=== PATIENT | female | born 1960 | race Caucasian/White ===

== ENCOUNTER → 2018-05-12 | Outpatient (CLI) | payer BC ==
--- NOTE | 2018-05-14 09:06 | ECHOF ---
Referral Reason:I10 Essential (primary) hypertension MEASUREMENTS -------- HEIGHT: 167.6 cm WEIGHT: 92.1 kg BP: RVIDd: 2.2 cm (< 3.3) IVSd: 0.9 cm (0.6 - 1.1) LVIDd: 4.0 cm (3.9 - 5.3) LVPWd: 1.0 cm (0.6 - 1.1) IVSs: 1.1 cm LVIDs: 2.9 cm LVPWs: 1.3 cm LAESV Index (A-L): 26.22 ml/m Ao Diam: 2.9 cm (2.0 - 3.7) AV Cusp: 1.9 cm (1.5 - 2.6) LA Diam: 3.0 cm (2.7 - 3.8) MV EXCURSION: 16.399 mm (> 18.000) MV EF SLOPE: 109 mm/s (70 - 150) EPSS: 0.5 cm MV E John: 0.81 m/s MV DecT: 358 ms MV A John: 0.00 m/s MV E/A Ratio: 186.42 RAP: 5.00 mmHg RVSP: 22.32 mmHg FINDINGS -------- Sinus rhythm. This was a technically adequate study. The left ventricular size is normal. Left ventricular wall thickness is normal. Overall left vent ricular systolic function is normal with, an EF between 55 - 60 %. The right ventricle is normal in size and function. Normal LA size by volume 22+/-6 ml/m2. The right atrium is normal in size. The aortic valve is trileaflet, and appears structurally normal. No aortic stenosis or regurgitation. The mitral valve leaflets are mildly thickened. Mild mitral regurgitation is present. Trace tricuspid regurgitation present. Right ventricular systolic pressure is normal at < 35 mmHg. There is no evidence of pulmonary hypertension. The pulmonic valve is normal. The aortic root size is normal. Normal inferior vena cava with normal inspiratory collapse consistent with estimated right atrial pre ssure of 5 mmHg. There is no pericardial effusion. CONCLUSIONS -------- 1. Sinus rhythm. 2. This was a technically adequate study. 3. The left ventricular size is normal. 4. Left ventricular wall thickness is normal. 5. Overall left ventricular systolic function is normal with, an EF between 55 - 60 %. 6. Normal LA size by volume 22+/-6 ml/m2. 7. The aortic valve is trileaflet, and appears structurally normal. No aortic stenosis or regurgitati on. 8. The mitral valve leaflets are mildly thickened. 9. Mild mitral regurgitation is present. 10. Trace tricuspid regurgitation present. 11. Right ventricular systolic pressure is normal at < 35 mmHg. 12. There is no evidence of pulmonary hypertension. 13. The aortic root size is normal. 14. There is no pericardial effusion. JEWELRY [employer]KING INSTRUCTOR: Jose Trivedi RDCS
== END | disposition home or self-care (01) ==
LOC: RADECHMAIN 14:41
PROVIDERS: ATTEND Family Medicine
DX: I34.0 Nonrheumatic mitral (valve) insufficiency (principal); I10 Essential (primary) hypertension
CPT/HCPCS: 93306

== ENCOUNTER → 2019-03-16 | Outpatient (CLI) | payer BC ==
[2019-03-16 11:34] LABS: African American GFR (CKD) 94.2 (60.0-200.0); Albumin 4.2 g/dL (3.80-4.90); Albumin/Globulin Ratio 1.83 (1.60-3.17); Anion Gap 7.4 mmol/L (4.00-12.00); Calcium 9.3 mg/dL (8.7-10.3); Carbon Dioxide 26.6 mmol/L (21.6-31.8); Globulin 2.3 g/dL (1.6-3.3); LDL Cholesterol,Calculated 113.2 mg/dL (0.0-131.0); Potassium 4.2 mmol/L (3.5-5.5); Total Bilirubin 0.7 mg/dL (0.3-1.2); Total Protein 6.5 g/dL (6.2-8.2); VLDL Calculation 22.8 mg/dL (5.00-40.00)
== END | disposition home or self-care (01) ==
LOC: LABWHC1 07:13
PROVIDERS: ATTEND Family Medicine
DX: Z00.00 Encounter for general adult medical examination without abnormal findings (principal)
CPT/HCPCS: 36415; 80053; 80061

== ENCOUNTER → 2019-04-20 | Outpatient (CLI) | payer BC ==
--- NOTE | 2019-04-24 15:25 | MM ---
Reason for exam: screening (asymptomatic). Last mammogram was performed 2 years and 9 months ago. History: Patient is postmenopausal and is nulliparous. Family history of premenopausal breast cancer in maternal aunt at age 45. Took hormonal contraceptives for 8 years beginning at age 25. Taking estrogen for 6 months. MG 3D Screening Mammo W/Cad Bilateral CC and MLO view(s) were taken. Prior study comparison: July 26, 2016, bilateral MG 3d diag mammo w/cad [facility]. November 09, 2013, CAD bilateral diagnostic mammogram. The breast tissue is heterogeneously dense. This may lower the sensitivity of mammography. No significant new finding when compared with prior studies. ASSESSMENT: Negative, BI-RAD 1 RECOMMENDATION: Routine screening mammogram of both breasts in 1 year.
== END | disposition home or self-care (01) ==
LOC: RADMAMWWP 07:40
PROVIDERS: ATTEND Family Medicine
DX: Z12.31 Encounter for screening mammogram for malignant neoplasm of breast (principal)
CPT/HCPCS: 77063; 77067

== ENCOUNTER → 2021-09-04 | Outpatient (CLI) | payer BC ==
[2021-09-04 12:10] LABS: ALT 22 U/L (8-44); AST 18 U/L (13-35); African American GFR (CKD) 108.4 (60.0-200.0); Albumin 4.3 g/dL (3.8-4.9); Albumin/Globulin Ratio 2.15 (1.60-3.17); Alkaline Phosphatase 48 U/L (41-126); BUN/Creat Ratio 21.29 Ratio (12.00-20.00); Blood Urea Nitrogen 14.9 mg/dL (9.0-27.0); Calcium 9.3 mg/dL (8.7-10.3); Carbon Dioxide 22.9 mmol/L (20.0-27.5); Chloride 103 mmol/L (96-109); Chol/HDL Ratio 2.48 Ratio; Glucose 87 mg/dL (70-110); LDL Cholesterol,Calculated 105.8 mg/dL (0.0-131.0); Non-African American GFR(CKD) 93.5 (60.0-200.0); Potassium 4.2 mmol/L (3.5-5.5); Sodium 138 mmol/L (135-145); Total Protein 6.3 g/dL (6.2-8.2)
== END | disposition home or self-care (01) ==
LOC: LABWHC1 07:07
PROVIDERS: ATTEND Family Medicine
DX: Z00.00 Encounter for general adult medical examination without abnormal findings (principal); Z12.12 Encounter for screening for malignant neoplasm of rectum
CPT/HCPCS: 36415; 80053; 80061

== ENCOUNTER → 2022-03-08 | Outpatient (CLI) | payer BC ==
--- NOTE | 2022-03-09 20:06 | MM ---
Reason for Exam: Screening (asymptomatic). Last mammogram was performed 2 year(s) and 11 month(s) ago. Patient History: Menarche at age 12. Patient has no children. Postmenopausal. Currently using Estrogen, for 6 months. Hormonal Contraceptives for 8 years from age 25 until age 50. Maternal aunt had breast cancer, age 45. Risk Values: Cyndie 5 year model risk: 1.6%. NCI Lifetime model risk: 7.9%. Prior Study Comparison: 11/09/2013 Bilateral Diagnostic Mammogram, [facility]. 07/26/2016 Bilateral Diagnostic Mammogram, [facility]. 04/20/2019 Bilateral Screening Mammogram, [facility]. Tissue Density: There are scattered fibroglandular densities. Findings: Analyzed By CAD. On the right, there is an area of focal asymmetry upper outer quadrant middle depth that appears more defined and incompletely disperses on 3-D images. Additional views are recommended. Additional oval nodularity 3-4 o'clock right breast middle to posterior depth medial. Again, further evaluation is recommended. Otherwise, no significant change. Overall Assessment: Incomplete: need additional imaging evaluation, BI-RAD 0 Management: Special View Mammogram of the right breast. 1. Additional views right breast to include spot 3-D CC, spot 3-D MLO, and 3-D lateral views (2 sites). 2. Targeted right breast ultrasound if any persisting abnormality. Electronically signed and approved by: Benjamin Bliss M.D. Radiologist
== END | disposition home or self-care (01) ==
LOC: RADMAMWWP 07:49
PROVIDERS: ATTEND Family Medicine
DX: Z12.31 Encounter for screening mammogram for malignant neoplasm of breast (principal); Z78.0 Asymptomatic menopausal state; Z80.3 Family history of malignant neoplasm of breast
CPT/HCPCS: 77063; 77067

== ENCOUNTER → 2022-03-18 | Outpatient (CLI) | payer BC ==
--- NOTE | 2022-03-18 15:45 | USB ---
Reason for Exam: Additional evaluation requested from abnormal screening. Last screening mammogram was performed less than 1 month ago. Patient History: Menarche at age 12. Patient has no children. Postmenopausal. Currently using Estrogen, for 6 months. Hormonal Contraceptives for 8 years from age 25 until age 50. Maternal aunt had breast cancer, age 45. Risk Values: Cyndie 5 year model risk: 1.6%. NCI Lifetime model risk: 7.9%. Prior Study Comparison: 06/26/2001 Bilateral Screening Mammogram, [facility]. 06/27/2003 Bilateral Screening Mammogram, [facility]. 10/15/2005 Bilateral Screening Mammogram, [facility]. 10/22/2005 Right Diagnostic Mammogram, [facility]. 11/17/2007 Bilateral Screening Mammogram, [facility]. 11/29/2007 Right Diagnostic Mammogram, [facility]. 10/30/2009 Bilateral Diagnostic Ultrasound, [facility]. 10/30/2009 Bilateral Diagnostic Mammogram, [facility]. 07/30/2010 Bilateral Diagnostic Ultrasound, [facility]. 11/06/2010 Bilateral Diagnostic Mammogram, [facility]. 07/24/2012 Bilateral Diagnostic Mammogram, [facility]. 07/24/2012 Right Diagnostic Ultrasound, [facility]. 11/09/2013 Bilateral Diagnostic Mammogram, [facility]. 11/09/2013 Right Diagnostic Ultrasound, [facility]. 07/26/2016 Bilateral Diagnostic Mammogram, [facility]. 07/26/2016 Right Diagnostic Ultrasound, [facility]. 04/20/2019 Bilateral Screening Mammogram, [facility]. 03/08/2022 Bilateral MG 3D screening mammo w/cad, [facility]. Tissue Density: Right: There are scattered fibroglandular densities. Findings: Analyzed By CAD. Mammogram Under compression there is a persistent nodularity within the 3:00 position posterior right breast.. This is nonspecific. Additional workup with ultrasound is recommended. Technique: Method: Targeted. Findings: No discrete solid or cystic areas evident to correspond to the mammographic finding. No suspicious ultrasound findings. Overall Assessment: Suspicious, BI-RAD 4 Assessment: MG 3D work up w/cad RT - Right: Suspicious, BI-RAD 4. US breast workup limited RT - Right: Negative, BI-RAD 1. Management: Stereotactic Core Biopsy of the right breast. A clinical breast exam by your physician is recommended on an annual basis and results should be correlated with mammographic findings. Results were given to the patient verbally at the time of exam. Electronically signed and approved by: Edgard Benson D.O. Radiologis
--- NOTE | 2022-03-18 15:45 | MM ---
Reason for Exam: Additional evaluation requested from abnormal screening. Last screening mammogram was performed less than 1 month ago. Patient History: Menarche at age 12. Patient has no children. Postmenopausal. Currently using Estrogen, for 6 months. Hormonal Contraceptives for 8 years from age 25 until age 50. Maternal aunt had breast cancer, age 45. Risk Values: Cyndie 5 year model risk: 1.6%. NCI Lifetime model risk: 7.9%. Prior Study Comparison: 06/26/2001 Bilateral Screening Mammogram, [facility]. 06/27/2003 Bilateral Screening Mammogram, [facility]. 10/15/2005 Bilateral Screening Mammogram, [facility]. 10/22/2005 Right Diagnostic Mammogram, [facility]. 11/17/2007 Bilateral Screening Mammogram, [facility]. 11/29/2007 Right Diagnostic Mammogram, [facility]. 10/30/2009 Bilateral Diagnostic Ultrasound, [facility]. 10/30/2009 Bilateral Diagnostic Mammogram, [facility]. 07/30/2010 Bilateral Diagnostic Ultrasound, [facility]. 11/06/2010 Bilateral Diagnostic Mammogram, [facility]. 07/24/2012 Bilateral Diagnostic Mammogram, [facility]. 07/24/2012 Right Diagnostic Ultrasound, [facility]. 11/09/2013 Bilateral Diagnostic Mammogram, [facility]. 11/09/2013 Right Diagnostic Ultrasound, [facility]. 07/26/2016 Bilateral Diagnostic Mammogram, [facility]. 07/26/2016 Right Diagnostic Ultrasound, [facility]. 04/20/2019 Bilateral Screening Mammogram, [facility]. 03/08/2022 Bilateral MG 3D screening mammo w/cad, [facility]. Tissue Density: Right: There are scattered fibroglandular densities. Findings: Analyzed By CAD. Mammogram Under compression there is a persistent nodularity within the 3:00 position posterior right breast.. This is nonspecific. Additional workup with ultrasound is recommended. Technique: Method: Targeted. Findings: No discrete solid or cystic areas evident to correspond to the mammographic finding. No suspicious ultrasound findings. Overall Assessment: Suspicious, BI-RAD 4 Assessment: MG 3D work up w/cad RT - Right: Suspicious, BI-RAD 4. US breast workup limited RT - Right: Negative, BI-RAD 1. Management: Stereotactic Core Biopsy of the right breast. A clinical breast exam by your physician is recommended on an annual basis and results should be correlated with mammographic findings. Results were given to the patient verbally at the time of exam. Electronically signed and approved by: Edgard Benson D.O. Radiologis
== END | disposition home or self-care (01) ==
LOC: RADMAMWWP 13:41
PROVIDERS: ATTEND Family Medicine
DX: R92.8 Other abnormal and inconclusive findings on diagnostic imaging of breast (principal); Z78.0 Asymptomatic menopausal state; Z80.3 Family history of malignant neoplasm of breast
CPT/HCPCS: 77061; 77065

== ENCOUNTER → 2022-04-09 | Day surgery (SDC) | payer BC ==
[2022-04-09 10:12] VITALS: RESP 16
[2022-04-09 11:50] VITALS: BP 148/81; PULSE 90; TEMP 98.1
--- NOTE | 2022-04-15 08:25 | MM ---
Risk Values: Cyndie 5 year model risk: 1.6%. NCI Lifetime model risk: 7.9%. Prior Study Comparison: 04/20/2019 Bilateral Screening Mammogram, [facility]. 03/08/2022 Bilateral MG 3D screening mammo w/cad, [facility]. 03/18/2022 Right MG 3D work up w/cad RT, [facility]. Pathology Description: Marker Left Behind. Approach: CC FA Needle Type: Eviva Cores: 7 Skin Nicks: 1 Gauge: 9 The procedure of stereotactic guided core biopsy was explained to the patient. Benefits, alternatives, and risks were discussed. An informed consent was then obtained. [facility] was originally chosen trying a medial to lateral approach. Lesion was not well seen on true lateral compression thus a inferior approach using CC compression was first attempted. This gave high depth so a superior approach was then performed. Overlying skin is cleansed with Betadine by nurse. Lidocaine is used as anesthetic into the scan and deeper tissue. Lidocaine with epinephrine is used as anesthetic into the deeper tissue during sampling. A vacuum assisted biopsy gun was used to obtain multiple core samples. The patient tolerated the procedure well without any immediate complication. The patient was kept in the radiology department for short stay after the procedure and then discharged home in stable condition. Post biopsy mammogram shows the clip to appear in satisfactory position relative to the targeted area of concern on the preprocedure images. Impression: SUCCESSFUL, UNCOMPLICATED STEREOTACTIC GUIDED CORE BIOPSY OF AREA OF CONCERN IN THE right BREAST. PATHOLOGY STATUS: Results pending Intermediate index of suspicion noted at time of procedure. Suspect may reflect prominent lymph node. Pathology Results: Result: Benign, Fibrocystic change. RIGHT BREAST, CORE BIOPSY: Benign fibrocystic change with apocrine metaplasia and focal sclerosing adenosis. Focal usual ductal hyperplasia and columnar cell change present with focal fibrosis. Current specimen negative for diagnostic malignancy. See note. Overall Assessment: Benign Management: Diagnostic Mammogram of the right breast in 6 months. Electronically signed and approved by: Hu Saleh M.D.
== END ==
LOC: RADMAMWWP 09:59
PROVIDERS: ATTEND Surgery
DX: N60.11 Diffuse cystic mastopathy of right breast (principal); N60.21 Fibroadenosis of right breast; N60.81 Other benign mammary dysplasias of right breast
CPT/HCPCS: 88305; 88342; 88341; 19081; A4648; J2001

== ENCOUNTER → 2022-10-15 | Outpatient (CLI) | payer BC ==
--- NOTE | 2022-10-18 15:11 | MM ---
Reason for Exam: Follow-up at short interval from prior study. Last screening mammogram was performed 7 month(s) ago. Patient History: Menarche at age 12. Patient has no children. Postmenopausal. Currently using Estrogen, for 6 months. Hormonal Contraceptives for 8 years from age 25 until age 50. 04/09/2022, Benign MG stereo VAD BX RT on the right side. Maternal aunt had breast cancer, age 45. Risk Values: Cyndie 5 year model risk: 2.0%. NCI Lifetime model risk: 9.0%. Prior Study Comparison: 04/20/2019 Bilateral Screening Mammogram, [facility]. 03/08/2022 Bilateral MG 3D screening mammo w/cad, [facility]. 03/18/2022 Right MG 3D work up w/cad RT, [facility]. Tissue Density: Right: The breast tissue is heterogeneously dense. This may lower the sensitivity of mammography. Findings: Analyzed By CAD. No new suspicious mass or worrisome cluster of microcalcifications within the right breast. Biopsy clip demonstrated within the right breast. Overall Assessment: Benign, BI-RAD 2 Management: Screening Mammogram of both breasts in 5 months. A clinical breast exam by your physician is recommended on an annual basis and results should be correlated with mammographic findings. This exam should not preclude additional follow-up of suspicious palpable abnormalities. Results were given to the patient verbally at the time of exam. Electronically signed and approved by: Charlie Haque D.O.
== END | disposition home or self-care (01) ==
LOC: RADMAMWWP 12:49
PROVIDERS: ATTEND Surgery
DX: R92.8 Other abnormal and inconclusive findings on diagnostic imaging of breast (principal); Z78.0 Asymptomatic menopausal state; Z80.3 Family history of malignant neoplasm of breast; Z98.890 Other specified postprocedural states
CPT/HCPCS: 77061; 77065

== ENCOUNTER → 2023-03-15 | Outpatient (CLI) | payer BC ==
--- NOTE | 2023-03-16 08:02 | MM ---
Reason for Exam: Screening (asymptomatic). Last screening mammogram was performed 12 month(s) ago. Patient History: Menarche at age 12. Patient has no children. Postmenopausal. Currently using Estrogen, for 6 months. Hormonal Contraceptives for 8 years from age 25 until age 50. 04/09/2022, Benign MG stereo VAD BX RT on the right side. Maternal aunt had breast cancer, age 45. Risk Values: Cyndie 5 year model risk: 2.0%. NCI Lifetime model risk: 9.0%. Prior Study Comparison: 03/08/2022 Bilateral MG 3D screening mammo w/cad, [facility]. 03/18/2022 Right MG 3D work up w/cad RT, [facility]. 10/15/2022 Right MG 3D diag mammo w/cad RT, [facility]. Tissue Density: The breast tissue is heterogeneously dense. This may lower the sensitivity of mammography. Findings: Analyzed By CAD. Microclip medial right breast from prior biopsy. Asymmetric density lateral right CC view remains unchanged. There is no suspicious group of microcalcifications or new suspicious mass in either breast. Overall Assessment: Benign, BI-RAD 2 Management: Screening Mammogram of both breasts in 1 year. . Patient should continue monthly self-breast exams. A clinical breast exam by your physician is recommended on an annual basis. This exam should not preclude additional follow-up of suspicious palpable abnormalities. Note on Cyndie scores and lifetime risk: 1. A Cyndie score greater than 3% is considered moderate risk. If this is the case, consider specialist referral to assess eligibility for a risk reducing agent. 2. If overall lifetime risk for the development of breast cancer is 20% or higher, the patient may qualify for future screening with alternating mammogram and breast MRI. Electronically signed and approved by: Benjamin Bliss M.D. Radiologist
== END | disposition home or self-care (01) ==
LOC: RADMAMWWP 09:06
PROVIDERS: ATTEND Surgery
DX: Z12.31 Encounter for screening mammogram for malignant neoplasm of breast (principal); Z78.0 Asymptomatic menopausal state; Z80.3 Family history of malignant neoplasm of breast
CPT/HCPCS: 77063; 77067

== ENCOUNTER 2024-06-22 10:14 | Day surgery (SDC) | payer BC, OTHER ==
[~2024-06-22 10:14] MED LIST: ALPRAZolam 0.25 MG TAB PO PRN; ALPRAZolam 0.5 MG TAB PO PRN; ATORVASTATIN 80 MG TAB PO STA; HEPARIN SODIUM,PORCINE (1 ML) 2,500 UNIT in SODIUM CHLORIDE 0.9% 250 ML IRRIGATION PRN; HEPARIN SODIUM,PORCINE 10,000 UNIT in SODIUM CHLORIDE 0.9% 1,000 ML IRRIGATION PRN; NITROGLYCERIN SL TABS 0.4 MG TAB SUBLINGUAL PRN
[2024-06-22] MEDS: SODIUM CHLORIDE 0.9% 1,000 ML in EMPTY BAG 1 BAG IV SCH (10:18)
[2024-06-22] MEDS: IV FLUID CONTINUATION 1,000 ML IV ONE (10:19)
[2024-06-22 10:34] VITALS: RESP 16; TEMP 97.5
[2024-06-22 10:50] LABS: Basophils # (A) 0.1 k/uL (0-0.2); Basophils % (A) 1 %; Eosinophils # (A) 0.3 k/uL (0-0.7); Eosinophils % (A) 4 %; HCT 44.5 % (34.0-46.0); HGB 15.3 gm/dL (11.4-16.0); Lymphocytes # (A) 1.8 k/uL (1.0-4.8); Lymphocytes % (A) 25 %; MCH 31.5 pg (25.0-35.0); MCHC 34.4 g/dL (31.0-37.0); MCV 91.7 fL (80.0-100.0); Monocytes # (A) 0.4 k/uL (0-1.0); Monocytes % (A) 6 %; Neutrophils # (A) 4.5 k/uL (1.3-7.7); Neutrophils % (A) 63 %; Platelet Count 241 k/uL (150-450); RBC 4.85 m/uL (3.80-5.40); RDW 13.1 % (11.5-15.5); WBC 7.1 k/uL (3.8-10.6)
[2024-06-22 11:04] LABS: African American GFR (CKD) >90 (>60 ml/min/1.73 sqM); Anion Gap 5 mmol/L; Blood Urea Nitrogen 15 mg/dL (7-17); Calcium 9.7 mg/dL (8.4-10.2); Carbon Dioxide 27 mmol/L (22-30); Chloride 107 mmol/L (98-107); Glucose 91 mg/dL (74-99); Non-African American GFR(CKD) >90 (>60 ml/min/1.73 sqM); Potassium 4.1 mmol/L (3.5-5.1); Sodium 139 mmol/L (137-145)
[2024-06-22] MEDS: ASPIRIN 325 MG TAB PO STA (13:21)
[2024-06-22] MEDS: MIDAZOLAM 2 MG/2 ML VIAL IVP ONE ×2 (13:37→13:49)
[2024-06-22] MEDS: fentaNYL (PF) 50 MCG/ML 2 ML AMP IVP ONE (13:37)
[2024-06-22] MEDS: LIDOCAINE 1% INJ 10MG/ML (20 ML MDV) SQ ONE (13:39)
[2024-06-22] MEDS: VERAPAMIL SYRINGE (5 MG/10 ML) INTRAARTER ONE (13:44)
[2024-06-22] MEDS: HEPARIN SODIUM 1,000 UN/ML (10ML VL) IV ONE (13:49)
[2024-06-22] MEDS: IOPAMIDOL-370 200ML BTL INJ ONE (13:59)
[2024-06-22] MEDS: SODIUM CHLORIDE 0.9% 1,000 ML IV ONE (14:00)
[2024-06-22] MEDS: ACETAMINOPHEN TAB 500 MG TAB PO STA (14:18)
--- NOTE | 2024-06-22 15:03 | P.CARDCATH ---
Description of Procedure: PROCEDURES PERFORMED: Left heart catheterization, bilateral coronary angiography, ultrasound guided arterial access INDICATION: abnormal stress test CONSENT:I have discussed the risks, benefits and alternative therapies for the above-mentioned procedure and for both sedation/analgesia as well as necessary blood product administration, if indicated, as they pertain to this patient. The patient has indicated understanding and acceptance of the risks and procedures discussed. PROCEDURE: After the risks, benefits and alternatives of the above mentioned procedure explained in detail with the patient, informed consent was obtained. Patient was taken to the catheterization lab and prepped and draped in usual fashion. Ultrasound guidance was used to assess for arterial access. 1% lidocaine was used to anesthetize the right radial artery. A 6-Austrian sheath was placed in the right radial artery using modified Seldinger technique and ultrasound guidance. Left coronary angiography was performed with a 5-Austrian JL 3.5 catheter and right coronary angiography was performed with a 5-Austrian FR5 catheter in various views. A 5-Austrian FR5 catheter was inserted into the left ventricle and pressure measurements were obtained. The right radial sheath was removed and a TR band was placed with hemostasis achieved. The patient to lerated the procedure well. Patient was transported back to the post catheterization holding area in stable condition. Conscious Sedation: Patient was monitored under the direct supervision of myself for conscious sedation using Versed and fentanyl for a total duration of 12 minutes HEMODYNAMICS: Ao: 141/71 LV: 141/8, LVEPD 13 SELECTIVE CORONARY ARTERIOGRAPHY: LEFT MAIN: The left main is a large caliber vessel which bifurcates into the LAD and circumflex. There is no significant stenosis. LEFT ANTERIOR DESCENDING CORONARY ARTERY: LAD is a large caliber vessel which wraps around to the apex. There is no significant stenosis. LEFT CIRCUMFLEX CORONARY ARTERY: Left circumflex is a moderate caliber vessel without significant stenosis. RIGHT CORONARY ARTERY: The right coronary artery is a large caliber vessel which gives off a PDA and PLV branch and is the dominant vessel. There is no significant stenosis. FINAL IMPRESSION: 1. Normal coronary arteries as described above. 2. Normal left sided filling pressures PLAN: 1. Aggressive risk factor modification per most recent ACC/AHA guidelines. 2. Follow-up in the office in 1-2 weeks.
[2024-06-22 16:42] VITALS: PULSE 90
[2024-06-22 17:16] VITALS: BP 142/75
== END 2024-06-22 17:17 | disposition home or self-care (01) ==
LOC: CATHCVL 10:14
PROVIDERS: ATTEND Internal Medicine
DX: R94.39 Abnormal result of other cardiovascular function study
CPT/HCPCS: 80048; 85025; 93458

== ENCOUNTER 2024-07-20 11:41 | Day surgery (SDC) | payer OTHER ==
[2024-07-20 12:05] VITALS: TEMP 98.1
[2024-07-20] MEDS: IV FLUID CONTINUATION 1,000 ML IV ONE (12:24)
[2024-07-20] MEDS: SODIUM CHLORIDE 0.9% 1,000 ML IV SCH (12:32)
[2024-07-20] MEDS ORDERED: PROPOFOL 10 MG/ML 20 ML VIAL IV ONE (12:51)
[2024-07-20] MEDS ORDERED: LIDOCAINE 1% INJ 10MG/ML (20 ML MDV) ONE (12:51)
[2024-07-20] MEDS: BENZOCAINE SPRAY 1 EACH MM ONE (13:08)
[2024-07-20] MEDS: hydrALAZINE HCL 20 MG/ML 1 ML VIAL IVP ONE (13:14)
[2024-07-20 14:51] VITALS: RESP 17
[2024-07-20 15:32] VITALS: BP 118/73; PULSE 69
--- NOTE | 2024-07-20 15:34 | P.TEE ---
Description of Procedure(s): Procedure performed: Transesophageal Echocardiogram with color flow doppler, pulsed wave doppler and continuous wave doppler, synchronized cardioversion Moderate conscious sedation: Moderate conscious sedation was supplied by anesthesia, see separate report. Complications: none Indications: atrial fibrillation PROCEDURE: After the risks, benefits and alternatives of the above mentioned procedure was explained in detail with the patient, informed consent was obtained. Patient was brought to the lab in a fasting state. Patient was given sedation by anesthesia, see separate report. The throat was sprayed with Hurricane to anesthetize the throat. A lubricated Omni probe was then introduced into the esophagus and stomach and multiple views were obtained. 2D echo with color flow doppler, pulsed wave doppler and continuous wave doppler was utilized. Patient did have laryngospasm and therefore limited images were obtained. The probe was then removed. There was no thrombus noted and therefore patient underwent synchronized cardioversion x 1 with 200J with resultant sinus rhythm. Patient tolerated the procedure well. Patient was transferred to the post procedure area in stable and satisfactory condition. FINDINGS: 1. The aortic valve is tricuspid and function normally. 2. The mitral valve appears be normal with moderate regurgitation (may be influenced by hypertensive blood pressure response). 3. Tricuspid valve appears to be normal. 4. Left atrial appendage is free of clot. 5. Left ventricular EF 50-55%
== END 2024-07-20 15:32 | disposition home or self-care (01) ==
LOC: OR 11:41
PROVIDERS: ATTEND Internal Medicine
DX: I48.0 Paroxysmal atrial fibrillation (principal); I34.0 Nonrheumatic mitral (valve) insufficiency; I10 Essential (primary) hypertension; E78.5 Hyperlipidemia, unspecified; F41.9 Anxiety disorder, unspecified; H34.8122 Central retinal vein occlusion, left eye, stable; Z88.1 Allergy status to other antibiotic agents; Z88.2 Allergy status to sulfonamides; Z79.899 Other long term (current) drug therapy
CPT/HCPCS: 93312; 93320; 93325; 92960; 99152; 99153; J0360; J2003; J2704